=== PATIENT | male | born 1960 | race Caucasian/White ===

== ENCOUNTER 2020-12-06 11:39 | Observation (INO) | payer BC ==
--- OUTSIDE RECORDS SUMMARY | 2020-12-06 11:41 | XMS REPORT | Continuity of Care Document ---
:1960 Author Organization [facility] t Address [address] [place] [address] Dr. Lafleur [address] [place] [id number] Care Team Providers Name Role Phone Unavailable Unavailable Unavailable Problems This patient has no known problems. Allergies, Adverse Reactions, Alerts This patient has no known allergies or adverse reactions. Medications This patient has no known medications. Procedures This patient has no known procedures. Results This patient has no known results.
--- NOTE | 2020-12-06 15:19 | RAD REPORT ---
EXAM DESCRIPTION: US - Abdomen Exam Limited - 12/06/2020 2:33 pm CLINICAL HISTORY: ABD PAIN COMPARISON: Abdomen Exam Complete dated 04/07/2019 FINDINGS: The gallbladder demonstrates multiple small gallstones. The gallbladder wall is thickened to 7 mm. The common bile duct is normal measuring 4 mm. The liver demonstrates no findings of intrahepatic biliary dilatation. IMPRESSION: Cholelithiasis with evidence of mild gallbladder wall thickening. Acute cholecystitis i s a possibility.
--- NOTE | 2020-12-06 16:19 | RAD REPORT ---
EXAM DESCRIPTION: RAD - Chest Single View - 12/06/2020 4:12 pm CLINICAL HISTORY: SWELLING Chest pain. COMPARISON: No comparisons FINDINGS: Portable technique limits examination quality. The lungs are grossly clear. The heart is significantly enlarged. No displaced fractures. IMPRESSION: Prominent cardiomegaly.
[2020-12-06 16:26] LABS: Absolute Lymphocytes (CBC) 1.3 K/uL (0.7-4.9); Basophils % 1.4 % (0-1.3); Lymphocytes % 21.4 % (15.3-44.8); MPV 8.6 fL (7.6-11.3); RBC Red Blood Cell Count 4.94 M/uL (4.33-5.43)
[2020-12-06 16:28] LABS: Protime INR 1.51
[2020-12-06 16:46] LABS: Albumin 3.4 g/dL (3.4-5.0); Bilirubin Direct 0.9 mg/dL (0-0.2); Bilirubin Total 2.1 mg/dL (0.2-1.0); Potassium 3.1 mmol/L (3.5-5.1); Protein, Total 7.3 g/dL (6.4-8.2)
--- NOTE | 2020-12-06 17:39 | ER ---
Nurse's Notes [facility] Name: Rony Guzman Age: 60 yrs Sex: Male : 1960 Arrival Date: 12/06/2020 Time: 11:42 Bed 2 Private MD: Diagnosis: Cardiogenic shock Presentation: 12/06 12:27 Chief complaint: Patient states: Abd pain with N/V (worse at night) for 1-2 weeks. No ll1 fever. Coronavirus screen: Client denies travel out of the [place] in the last 14 days. At this time, the client does not indicate any symptoms associated with coronavirus-19. Ebola Screen: Patient denies travel to an Ebola-affected area in the 21 days before illness onset. Initial Sepsis Screen: Does the patient meet any 2 criteria? No. Patient's initial sepsis screen is negative. Does the patient have a suspected source of infection? Yes: Acute abdominal pain. Risk Assessment: Do you want to hurt yourself or someone else? Patient reports no desire to harm self or others. Onset of symptoms was November 27, 2020. 12:27 Method Of Arrival: Ambulatory ll1 12:27 Acuity: AIMEE 3 ll1 Triage Assessment: 15:30 General: Appears distressed, uncomfortable, Behavior is cooperative, appropriate for bp age, anxious. Pain: Complains of pain in abdomen. EENT: No deficits noted. Neuro: No deficits noted. Cardiovascular: No deficits noted. Respiratory: No deficits noted. GI: Reports upper abdominal pain, nausea. : No signs and/or symptoms were reported regarding the genitourinary system. Derm: No deficits noted. Musculoskeletal: No deficits noted. Historical: - Allergies: 12/07 00:21 No Known Allergies; jb4 - Home Meds: 12/06 16:23 omeprazole 40 mg Oral cpDR 1 cap once daily [Active]; simvastatin 40 mg Oral tab 1 tab bp once daily [Active]; alprazolam 2 mg Oral TbDL 1 tab twice a day [Active]; Senokot 8.6 mg Oral tab 2 tabs once daily [Active]; furosemide 40 mg Oral tab 2 tabs once daily [Active]; sotalol 120 mg Oral tab 1 tab 2 times per day [Active]; - PMHx: 12:30 CHF; Cirrhosis; Diabetes - IDDM; Hypertension; ll1 - PSHx: 12:30 colonscopy; heart cath; ll1 - Immunization history:: Flu vaccine is not up to date. - Social history:: Smoking status: Patient denies any tobacco usage or history of. - : The history from the nurse's notes was reviewed. Screenin:31 Abuse screen: Denies threats or abuse. Denies injuries from another. Nutritional bp screening: No deficits noted. Tuberculosis screening: No symptoms or risk factors identified. Fall Risk None identified. Assessment: 15:31 General: SEE TRIAGE NOTE. bp 16:24 Reassessment: Patient appears in no apparent distress at this time. No changes from bp previously documented assessment. Patient and/or family updated on plan of care and expected duration. Pain level reassessed. Patient is alert, oriented x 3, equal unlabored respirations, skin warm/dry/pink. U/S PENDING. 16:32 Reassessment: : CHRISTY GUZMAN [phone]. bp 17:30 Reassessment: Patient appears in no apparent distress at this time. No changes from bp previously documented assessment. Patient and/or family updated on plan of care and expected duration. Pain level reassessed. Patient is alert, oriented x 3, equal unlabored respirations, skin warm/dry/pink. ADMIT INITIATED. 18:30 Reassessment: Patient appears in no apparent distress at this time. No changes from bp previously documented assessment. Patient and/or family updated on plan of care and expected duration. Pain level reassessed. Patient is alert, oriented x 3, equal unlabored respirations, skin warm/dry/pink. PER SURGERY, PT NPO. SURG C/S DUE IN THE AM. 19:00 Reassessment: Patient appears in no apparent distress at this time. Patient and/or jb4 family updated on plan of care and expected duration. Pain level reassessed. Patient is alert, oriented x 3, equal unlabored respirations, skin warm/dry/pink. 20:00 Reassessment: Patient appears in no apparent distress at this time. Patient and/or jb4 family updated on plan of care and expected duration. Pain level reassessed. Patient is alert, oriented x 3, equal unlabored respirations, skin warm/dry/pink. 21:15 Reassessment: PT attempted to ambulate to the restroom. Upon returning to his room he jb4 stopped at the nurses station and appeared dazed and was looking around. Pt was informed that he needed to return to his room. Primary nurses followed pt back to his room. The pt began to stumble, when asked what was wrong, he stated " nothing I feel fine" and fell into the nurse. Help was called for and pt was assisted to his room. Upon entering the room the pt fell completely unresponsive and was put back in the bed. The patient is noted to be cool, clammy, and cyanotic. Medical staff alerted the hospitalist and ER provider. Pt became responsive and returned to A\\T\\O 4 upon the arrival of the Hospitalist and ER provider. Pt denies dizziness or feeling light headed and continues to state " I feel fine guys.". 21:30 Reassessment: Hospitalist performed an ultrasound of the pt's heart. Unable to obtain jb4 manual or automatic B/p. Provider notified at the bedside, provider unable to obtain manual B/p. Pt remains Cyanotic, cool, and clammy, and A\\T\\O x4. 21:45 Reassessment: Provider initiated central line to the right femoral, pt placed on jb4 Dobutamine drip, blood pressure reading 99/68 after drip was started. 22:45 Reassessment: Patient appears in no apparent distress at this time. Patient and/or jb4 family updated on plan of care and expected duration. Pain level reassessed. Patient is alert, oriented x 3, equal unlabored respirations, skin warm/dry/pink. Pt remains cyanotic on the ears, over color improved, pt is no longer cool, and clammy. Pt remains A\\T\\Ox4, reports feeling much better. 23:56 Reassessment: Patient and/or family updated on plan of care and expected duration. Pain ea level reassessed. Patient is alert, oriented x 3, equal unlabored respirations, skin warm/dry/pink. Report given to flight team, pt left ED via stretcher tolerating well. Vital Signs: 12:27 BP 114 / 86; Pulse 89; Resp 17; Temp 98.8; Pulse Ox 100% ; Weight 81.65 kg; Height 5 ll1 ft. 10 in. (177.80 cm); Pain 2/10; 15:30 BP 111 / 91; Pulse 90; Resp 17; Pulse Ox 100% ; bp 16:24 BP 104 / 89; Pulse 91; Resp 17; Pulse Ox 97% ; bp 18:30 BP 101 / 68; Pulse 62; Resp 17; Pulse Ox 100% ; bp 19:51 BP 96 / 75; Pulse 65; Resp 18; Pulse Ox 95% on R/A; jb4 20:30 BP 91 / 66; Pulse 71; Resp 17; Pulse Ox 96% on R/A; jb4 21:11 BP 99 / 68; Pulse 71; Resp 17; Pulse Ox 96% on R/A; jb4 21:55 BP 110 / 82; Pulse 75; Resp 19; Pulse Ox 100% on Non-rebreather mask; jb4 22:15 BP 102 / 70; Pulse 76; Resp 16; Pulse Ox 100% on Non-rebreather mask; jb4 22:30 BP 126 / 80; Pulse 75; Resp 18; Pulse Ox 100% on Non-rebreather mask; jb4 22:45 BP 130 / 78; Pulse 75; Resp 20; Temp 97.4(C); Pulse Ox 100% on Non-rebreather mask; jb4 23:08 BP 120 / 53; Pulse 72; Resp 15; Pulse Ox 100% on R/A; mw2 23:25 BP 92 / 62; Pulse 74; Resp 16; Pulse Ox 100% on Non-rebreather mask; jb4 23:56 BP 120 / 76; Pulse 72; Resp 20; Temp 98.6; Pulse Ox 100% ; ea 12:27 Body Mass Index 25.83 (81.65 kg, 177.80 cm) ll1 ED Course: 11:42 Patient arrived in ED. ds1 12:29 Triage completed. ll1 12:31 Arm band placed on. ll1 14:33 Ultrasound completed. Patient tolerated well. Patient taken to lobby, via wheelchair, is Patient moved back from ultrasound. 14:41 Abdomen Exam Limited In Process Unspecified. EDMS 15:30 Servando Eden, JOSE MANUEL is Primary Nurse. bp 15:30 Tanya Bennett FNP-C is PHCP. kb 15:30 Silver Beltran MD is Attending Physician. kb 15:31 Patient has correct armband on for positive identification. Bed in low position. Call bp light in reach. Side rails up X2. 16:05 Inserted saline lock: 22 gauge in right wrist, using aseptic technique. Blood collected.bp 16:12 Chest Single View XRAY In Process Unspecified. EDMS 17:38 Fausto Quispe MD is Hospitalizing Provider. kb 19:15 Primary Nurse role handed off by Servando Eden, RN mw2 19:31 Jorge Luis Augustine, JSOE MANUEL is Primary Nurse. jb4 21:52 initiated a transfer with Dinorah Mandel from [facility]. mw2 21:55 initiated a transfer with Raquel Antunez from [facility]. mw2 22:08 Dinorah from [facility] called to deny due to capacity. mw2 22:23 doc to doc with the gang miner from [facility]. mw2 22:35 Assisted provider with central line placement. Set up central line tray. Triple lumen ea line placed in right femoral. Line placed by Anton NESS Placement verified by blood return, Patient tolerated well. 22:40 Vásquez cath inserted, using sterile technique, 18 Fr., by ED staff, balloon inflated, to ea gravity drainage. 22:54 administrative approval given by Raquel Antunez/ patient has been accepted to [facility] 7 [facility] bed 14/ Dr. Esquivel has accepted the patient in transfer/ report to be called to [phone]. 23:54 Patient transferred, IV remains in place. ea Administered Medications: 18:45 Drug: D5-1/2 NS 1000 ml Route: IV; Rate: 50 ml/hr; Site: right hand; bp 20:00 Follow up: IV Status: Completed infusion ea 18:45 Drug: Potassium Effervescent Tablet 50 mEq Route: PO; bp 20:00 Follow up: Response: No adverse reaction ea 18:45 Drug: D50W 25 ml Route: IVP; Site: right wrist; bp 20:00 Follow up: Response: No adverse reaction ea 21:50 Drug: DOBUTamine (250 mg/250mL premix) 10 mcg/kg/min Route: IV; Rate: calculated rate; [facility] [place] Site: right femoral; 12/07 00:23 Follow up: Response: Blood pressure is elevated; IV Status: Infusion continued upon jb4 transfer 12/06 22:35 Drug: Heparin (DVT/PE Drip) 18 units/kg/hr - (HEParin 04293 units, D5W 500 ml) jb4 {Co-Signature: yared (Marlene Boswell RN).} Route: IV; Rate: calculated rate; Site: right femoral; 12/07 00:23 Follow up: Response: No adverse reaction; IV Status: Infusion continued upon transfer jb4 12/06 22:35 Drug: HEParin 5000 units {Co-Signature: yared (Marlene Boswell RN).} Route: IV; Rate: bolus; jb4 Site: right femoral; 23:00 Follow up: Response: No adverse reaction jb4 22:45 Drug: Pepcid 20 mg Route: IVP; Site: right wrist; jb4 23:15 Follow up: Response: No adverse reaction jb4 23:57 Follow up: Response: No adverse reaction ea 22:45 Drug: Solu-CORTEF 100 mg Route: IVP; Site: right wrist; jb4 23:15 Follow up: Response: No adverse reaction jb4 23:58 Follow up: Response: No adverse reaction ea 22:46 Drug: Zosyn 3.375 grams Route: IVPB; Infused Over: 60 mins; Site: right wrist; jb4 23:46 Follow up: Response: No adverse reaction; IV Status: Completed infusion; IV Intake: jb4 100ml 23:26 Drug: Epinephrine Drip - (EPINEPHrine (PF) 4 mg, Sodium Chloride 0.9% 250 ml) Route: jb4 IV; Rate: 5 mcg/min; Site: right femoral; 23:57 Follow up: IV Status: Infusion continued upon transfer ea 12/07 00:22 Not Given (Physician Discretion): Fabricio-Synephrine 100 mcg/min IV at calculated rate jb4 continuous; (Standard dilution is 50 mg in 250 mL D5W, final concentration 200 mcg/mL) Intake: 12/06 23:46 IV: 100ml; Total: 100ml. jb4 Outcome: 17:38 Decision to Hospitalize by Provider. kb 23:04 ER care complete, transfer ordered by . kb 23:54 Transferred by helicopter to [facility], Transfer form completed. ea 23:54 Condition: stable 23:54 Instructed on the need for transfer, Demonstrated understanding of instructions. 12/07 00:22 Patient left the ED. ea Signatures: Dispatcher [employer] EDTanya Reyez, PLANT TAXONOMIST-C PLANT TAXONOMIST-Ckb Elli Hill ds1 Jorge Luis Augustine RN RN jb4 Marlene Boswell RN RN ea Peltier, Brian RN RN bp Rosa Blank 2 Nusrat Schofield Lynsay, RN RN ll1 Marlene Boswell RN, ea Corrections: (The following items were deleted from the chart) 12/06 21:58 21:50 The history from the nurse's notes was reviewed. kb kb
--- NOTE | 2020-12-06 17:39 | EDPHYS ---
Physician Documentation [facility] Name: Rony Eckert Age: 60 yrs Sex: Male : 1960 Arrival Date: 12/06/2020 Time: 11:42 Bed 2 Private MD: ED Physician Silver Beltran HPI: 12/06 15:30 This 60 yrs old Male presents to ER via Ambulatory with complaints of kb Gallstones Pain. 15:30 The patient presents to the emergency department with nausea, vomiting. Onset: The kb symptoms/episode began/occurred 2 week(s) ago. Possible causes: unknown. The symptoms are aggravated by nothing. The symptoms are alleviated by nothing. Associated signs and symptoms: Pertinent positives: nausea, vomiting, Pertinent negatives: abdominal pain, anorexia, belching, constipation, diarrhea, dysuria, fever, flatulence, GI bleeding, hematuria. Severity of symptoms: At their worst the symptoms were moderate in the emergency department the symptoms have improved. The patient has not experienced similar symptoms in the past. The patient has not recently seen a physician. Pt reports nausea and vomiting for 2 weeks, worse at night. States he was diagnosed with gallstones last year and believes that is the problem. Denies pain. States he also has swelling to bilateral lower extremities, but he knows that is from his CHF. . Historical: - Allergies: 12/07 00:21 No Known Allergies; jb4 - Home Meds: 12/06 16:23 omeprazole 40 mg Oral cpDR 1 cap once daily [Active]; simvastatin 40 mg Oral tab 1 tab bp once daily [Active]; alprazolam 2 mg Oral TbDL 1 tab twice a day [Active]; Senokot 8.6 mg Oral tab 2 tabs once daily [Active]; furosemide 40 mg Oral tab 2 tabs once daily [Active]; sotalol 120 mg Oral tab 1 tab 2 times per day [Active]; - PMHx: 12:30 CHF; Cirrhosis; Diabetes - IDDM; Hypertension; ll1 - PSHx: 12:30 colonscopy; heart cath; ll1 - Immunization history:: Flu vaccine is not up to date. - Social history:: Smoking status: Patient denies any tobacco usage or history of. - : The history from the nurse's notes was reviewed. ROS: 15:30 Constitutional: Negative for fever, chills, and weight loss, Cardiovascular: Negative kb for chest pain, palpitations, and edema, Respiratory: Negative for shortness of breath, cough, wheezing, and pleuritic chest pain, Back: Negative for injury and pain, MS/Extremity: Negative for injury and deformity, Skin: Negative for injury, rash, and discoloration, Neuro: Negative for headache, weakness, numbness, tingling, and seizure. 15:30 Abdomen/GI: Positive for nausea and vomiting, Negative for abdominal pain. Exam: 15:30 Constitutional: This is a well developed, well nourished patient who is awake, alert, kb and in no acute distress. Head/Face: Normocephalic, atraumatic. Chest/axilla: Normal chest wall appearance and motion. Nontender with no deformity. No lesions are appreciated. Respiratory: Lungs have equal breath sounds bilaterally, clear to auscultation and percussion. No rales, rhonchi or wheezes noted. No increased work of breathing, no retractions or nasal flaring. Abdomen/GI: Soft, non-tender, with normal bowel sounds. No distension or tympany. No guarding or rebound. No evidence of tenderness throughout. Skin: Warm, dry with normal turgor. Normal color with no rashes, no lesions, and no evidence of cellulitis. MS/ Extremity: Pulses equal, no cyanosis. Neurovascular intact. Full, normal range of motion. Neuro: Awake and alert, GCS 15, oriented to person, place, time, and situation. Cranial nerves II-XII grossly intact. Motor strength 5/5 in all extremities. Sensory grossly intact. Cerebellar exam normal. Normal gait. 15:30 Cardiovascular: Rate: normal, Rhythm: irregularly irregular, Pulses: no pulse deficits are appreciated, Heart sounds: normal, Edema: 2+ edema to level of left ankle, left foot, right ankle and right foot. Vital Signs: 12:27 BP 114 / 86; Pulse 89; Resp 17; Temp 98.8; Pulse Ox 100% ; Weight 81.65 kg; Height 5 ll1 ft. 10 in. (177.80 cm); Pain 2/10; 15:30 BP 111 / 91; Pulse 90; Resp 17; Pulse Ox 100% ; bp 16:24 BP 104 / 89; Pulse 91; Resp 17; Pulse Ox 97% ; bp 18:30 BP 101 / 68; Pulse 62; Resp 17; Pulse Ox 100% ; bp 19:51 BP 96 / 75; Pulse 65; Resp 18; Pulse Ox 95% on R/A; jb4 20:30 BP 91 / 66; Pulse 71; Resp 17; Pulse Ox 96% on R/A; jb4 21:11 BP 99 / 68; Pulse 71; Resp 17; Pulse Ox 96% on R/A; jb4 21:55 BP 110 / 82; Pulse 75; Resp 19; Pulse Ox 100% on Non-rebreather mask; jb4 22:15 BP 102 / 70; Pulse 76; Resp 16; Pulse Ox 100% on Non-rebreather mask; jb4 22:30 BP 126 / 80; Pulse 75; Resp 18; Pulse Ox 100% on Non-rebreather mask; jb4 22:45 BP 130 / 78; Pulse 75; Resp 20; Temp 97.4(C); Pulse Ox 100% on Non-rebreather mask; jb4 23:08 BP 120 / 53; Pulse 72; Resp 15; Pulse Ox 100% on R/A; mw2 23:25 BP 92 / 62; Pulse 74; Resp 16; Pulse Ox 100% on Non-rebreather mask; jb4 23:56 BP 120 / 76; Pulse 72; Resp 20; Temp 98.6; Pulse Ox 100% ; ea 12:27 Body Mass Index 25.83 (81.65 kg, 177.80 cm) ll1 Procedures: 22:55 Central Line: the site was prepped with Betadine, in sterile fashion, a triple lumen jr8 catheter was inserted, in the right femoral vein, in 1 attempts. placement was verified, by blood return, the site was dressed with 4X4s, Tegaderm, foam tape, using sterile technique, the patient tolerated the procedure, well. MDM: 15:30 Patient medically screened. kb 17:37 Data reviewed: vital signs, nurses notes. Data interpreted: Pulse oximetry: on room air kb is 97 %. Interpretation: normal. Counseling: I had a detailed discussion with the patient and/or guardian regarding: the historical points, exam findings, and any diagnostic results supporting the discharge/admit diagnosis, lab results, radiology results, the need for further work-up and treatment in the hospital. Physician consultation: Eitan Rosales MD was contacted at 17:37, regarding consult, patient's condition, and will see patient in inpatient room, tomorrow. 17:38 Physician consultation: Fausto Quispe MD was contacted at 17:38, regarding admission, to the medical/surgical unit. patient's condition, and will see patient in inpatient room. 22:05 Transition of care:. ED course: Pt was walking back from restroom and had a syncopal kb episode. Pt became cyanotic. THI Saha at bedside. . 22:55 ED course: I took over care from Tanya ZALDIVAR for critical care evaluation after patient jr8 had syncopal episode coming back from the bathroom. Patient had both peripheral and central cyanosis present at bedside. Patient immediately put on defib monitor and oxygen. Central line placed and dobutamine and epinephrine started. Patient had no palpable radial pulses. Femoral pulses present. After being on drips BP now 101/68 with central cyanosis resolving. [facility] contacted and Drs. Wang cardiology and Alvin Department Of Sociology Chair accepted patient for cardiogenic shock. Patient also started on heparin drip as he has on/off atrial fib history and still testing positive for covid. Concern for PE vs myocarditis vs CT with worsening of CHF. 12/06 15:31 Order name: Basic Metabolic Panel 12/06 15:31 Order name: CBC with Diff 12/06 15:31 Order name: Hepatic Function 12/06 15:31 Order name: Lipase 12/06 15:32 Order name: Basic Metabolic Panel; Complete Time: 16:48 EDAR 12/06 15:32 Order name: CBC with Automated Diff; Complete Time: 16:42 EDAR 12/06 15:32 Order name: Liver (Hepatic) Function; Complete Time: 16:48 EDAR 12/06 15:32 Order name: Lipase; Complete Time: 16:48 EDAR 12/06 15:48 Order name: BNP; Complete Time: 16:42 12/06 15:48 Order name: Protime (+inr); Complete Time: 16:42 12/06 15:48 Order name: Ptt, Activated; Complete Time: 16:42 12/06 19:49 Order name: COVID-19 : Document "Date of Symptom Onset" if Symptomatic. dm5 12/06 19:50 Order name: COVID-19 : Document "Date of Symptom Onset" if Symptomatic. jb4 12/06 20:47 Order name: CORONAVIRUS EDMS 12/06 21:29 Order name: Basic Metabolic Panel kb 12/06 21:29 Order name: CBC with Diff kb 12/06 21:29 Order name: LFT's kb 12/06 21:29 Order name: Magnesium kb 12/06 21:29 Order name: NT PRO-BNP kb 12/06 21:29 Order name: PT-INR kb 12/06 21:29 Order name: Troponin (emerg Dept Use Only) kb 12/06 21:29 Order name: CPK kb 12/06 21:29 Order name: Ckmb kb 12/06 21:41 Order name: SARS-COV-2 RT PCR; Complete Time: 21:48 EDMS 12/06 22:11 Order name: CBC with Automated Diff; Complete Time: 22:13 EDMS 12/06 22:11 Order name: Protime (+INR); Complete Time: 22:13 EDMS 12/06 22:28 Order name: Basic Metabolic Panel; Complete Time: 22:33 EDMS 12/06 22:28 Order name: Liver (Hepatic) Function; Complete Time: 22:33 EDMS 12/06 22:29 Order name: Creatine Phosphokinase; Complete Time: 22:33 EDMS 12/06 22:29 Order name: CKMB Creatine Kinase MB; Complete Time: 22:33 EDMS 12/06 14:03 Order name: US Abdomen Limited kb 12/06 14:03 Order name: Abdomen Exam Limited; Complete Time: 15:30 EDMS 12/06 15:31 Order name: IV Saline Lock; Complete Time: 16:20 kb 12/06 15:31 Order name: Labs collected and sent; Complete Time: 16:20 kb 12/06 15:48 Order name: Chest Single View XRAY; Complete Time: 16:24 kb 12/06 21:29 Order name: EKG; Complete Time: 21:30 kb 12/06 21:29 Order name: Cardiac monitoring; Complete Time: 22:15 kb 12/06 21:29 Order name: EKG - Nurse/Tech; Complete Time: 22:15 kb 12/06 21:29 Order name: IV Saline Lock; Complete Time: 22:15 kb 12/06 21:29 Order name: Labs collected and sent; Complete Time: 22:21 kb 12/06 21:29 Order name: O2 Per Protocol; Complete Time: 22:21 kb 12/06 21:29 Order name: O2 Sat Monitoring; Complete Time: 22:21 kb 12/06 21:52 Order name: Vásquez; Complete Time: 22:14 wilfredo 12/06 22:29 Order name: Troponin (Emerg Dept Use Only); Complete Time: 22:33 EDMS 12/06 22:29 Order name: NT PRO-BNP; Complete Time: 22:33 EDMS 12/06 22:29 Order name: Magnesium; Complete Time: 22:33 EDMS Administered Medications: 18:45 Drug: D5-1/2 NS 1000 ml Route: IV; Rate: 50 ml/hr; Site: right hand; bp 20:00 Follow up: IV Status: Completed infusion ea 18:45 Drug: Potassium Effervescent Tablet 50 mEq Route: PO; bp 20:00 Follow up: Response: No adverse reaction ea 18:45 Drug: D50W 25 ml Route: IVP; Site: right wrist; bp 20:00 Follow up: Response: No adverse reaction ea 21:50 Drug: DOBUTamine (250 mg/250mL premix) 10 mcg/kg/min Route: IV; Rate: calculated rate; [facility] Site: right femoral; 12/07 00:23 Follow up: Response: Blood pressure is elevated; IV Status: Infusion continued upon [facility] transfer 12/06 22:35 Drug: Heparin (DVT/PE Drip) 18 units/kg/hr - (HEParin 97530 units, D5W 500 ml) [facility] {Co-Signature: yared (Marlene Boswell RN).} Route: IV; Rate: calculated rate; Site: right femoral; 12/07 00:23 Follow up: Response: No adverse reaction; IV Status: Infusion continued upon transfer [facility] 12/06 22:35 Drug: HEParin 5000 units {Co-Signature: yared (Marlene Boswell RN).} Route: IV; Rate: bolus; 4 Site: right femoral; 23:00 Follow up: Response: No adverse reaction [facility] 22:45 Drug: Pepcid 20 mg Route: IVP; Site: right wrist; jb4 23:15 Follow up: Response: No adverse reaction [facility] 23:57 Follow up: Response: No adverse reaction ea 22:45 Drug: Solu-CORTEF 100 mg Route: IVP; Site: right wrist; jb4 23:15 Follow up: Response: No adverse reaction jb4 23:58 Follow up: Response: No adverse reaction ea 22:46 Drug: Zosyn 3.375 grams Route: IVPB; Infused Over: 60 mins; Site: right wrist; jb4 23:46 Follow up: Response: No adverse reaction; IV Status: Completed infusion; IV Intake: jb4 100ml 23:26 Drug: Epinephrine Drip - (EPINEPHrine (PF) 4 mg, Sodium Chloride 0.9% 250 ml) Route: jb4 IV; Rate: 5 mcg/min; Site: right femoral; 23:57 Follow up: IV Status: Infusion continued upon transfer ea 12/07 00:22 Not Given (Physician Discretion): Fabricio-Synephrine 100 mcg/min IV at calculated rate jb4 continuous; (Standard dilution is 50 mg in 250 mL D5W, final concentration 200 mcg/mL) Disposition: 12/06/20 23:04 Transfer ordered to [facility]. Diagnosis is Cardiogenic shock. - Reason for transfer: Higher level of care. - Accepting physician is Alvin. - Condition is Critical. - Problem is new. - Symptoms are unchanged. Critical care time excluding procedures: 12/06 23:03 Critical care time: Bedside Care: 15 minutes, Consultation: 10 minutes, Family kb Intervention: 10 minutes. Total time: 35 minutes Addendum: 12/08/2020 20:04 Co-signature as Attending Physician, Silver Beltran MD I agree with the assessment and k dr plan of care. Signatures: Dispatcher [employer] EDAR Tanya Bennett, TRIM MACHINE OPERATOR-C TRIM MACHINE OPERATOR-CkLily Silva, RN Sanchez Cheatham MD MD cha Rittger, Kevin, MD MD kdr Roszak, Josh, PA PA jr8 Jorge Luis Augustine, RN RN jbMarlene Morales RN RN ea Peltier, Brian, RN RN bp Lewis, Lynsay, RN RN ll1 Marlene Boswell RN, ea Corrections: (The following items were deleted from the chart) 12/06 20:19 17:38 Hospitalization Ordered by Fausto Quispe MD for Observation. Preliminary diagnosis is dw Acute cholecystitis; Cholelithiasis. Bed requested for Telemetry/MedSurg (observation). Status is Observation. Condition is Stable. Problem is new. Symptoms are unchanged. kb 21:56 21:50 Constitutional: Negative for fever, chills, and weight loss, Cardiovascular: kb Negative for chest pain, palpitations, and edema, Respiratory: Negative for shortness of breath, cough, wheezing, and pleuritic chest pain, Back: Negative for injury and pain, MS/Extremity: Negative for injury and deformity, Skin: Negative for injury, rash, and discoloration, Neuro: Negative for headache, weakness, numbness, tingling, and seizure, kb 21:56 21:50 Abdomen/GI: Positive for nausea and vomiting, Negative for abdominal pain, kb kb 21:56 21:50 Constitutional: This is a well developed, well nourished patient who is awake, kb alert, and in no acute distress. Head/Face: Normocephalic, atraumatic. Chest/axilla: Normal chest wall appearance and motion. Nontender with no deformity. No lesions are appreciated. Cardiovascular: Regular rate and rhythm with a normal S1 and S2. No gallops, murmurs, or rubs. Normal PMI, no JVD. No pulse deficits. Respiratory: Lungs have equal breath sounds bilaterally, clear to auscultation and percussion. No rales, rhonchi or wheezes noted. No increased work of breathing, no retractions or nasal flaring. Abdomen/GI: Soft, non-tender, with normal bowel sounds. No distension or tympany. No guarding or rebound. No evidence of tenderness throughout. Skin: Warm, dry with normal turgor. Normal color with no rashes, no lesions, and no evidence of cellulitis. MS/ Extremity: Pulses equal, no cyanosis. Neurovascular intact. Full, normal range of motion. Neuro: Awake and alert, GCS 15, oriented to person, place, time, and situation. Cranial nerves II-XII grossly intact. Motor strength 5/5 in all extremities. Sensory grossly intact. Cerebellar exam normal. Normal gait. kb 21:58 21:50 The history from the nurse's notes was reviewed. kb kb 21:58 21:50 Constitutional: This is a well developed, well nourished patient who is awake, kb alert, and in no acute distress. Head/Face: Normocephalic, atraumatic. Chest/axilla: Normal chest wall appearance and motion. Nontender with no deformity. No lesions are appreciated. Respiratory: Lungs have equal breath sounds bilaterally, clear to auscultation and percussion. No rales, rhonchi or wheezes noted. No increased work of breathing, no retractions or nasal flaring. Abdomen/GI: Soft, non-tender, with normal bowel sounds. No distension or tympany. No guarding or rebound. No evidence of tenderness throughout. Skin: Warm, dry with normal turgor. Normal color with no rashes, no lesions, and no evidence of cellulitis. MS/ Extremity: Pulses equal, no cyanosis. Neurovascular intact. Full, normal range of motion. Neuro: Awake and alert, GCS 15, oriented to person, place, time, and situation. Cranial nerves II-XII grossly intact. Motor strength 5/5 in all extremities. Sensory grossly intact. Cerebellar exam normal. Normal gait. kb 21:58 21:55 Cardiovascular: Rate: normal, Rhythm: irregularly irregular, Pulses: no pulse kb deficits are appreciated, Heart sounds: normal, Edema: 2+ edema to level of left ankle, left foot, right ankle and right foot, kb 21:58 21:51 The patient has not recently seen a physician, kb kb 21:58 21:51 The patient has not experienced similar symptoms in the past, kb kb 21:58 21:51 This 60 yrs old Male presents to ER via Ambulatory with complaints of kb Gallstones Pain. kb 21:58 21:54 Onset: The symptoms/episode began/occurred 2 week(s) ago, kb kb 21:58 21:54 Possible causes: unknown, kb kb 21:58 21:54 The patient presents to the emergency department with nausea, vomiting, kb kb 21:58 21:54 The symptoms are aggravated by nothing. The symptoms are alleviated by nothing. kbkb 21:58 21:54 Associated signs and symptoms: Pertinent positives: nausea, vomiting, Pertinent kb negatives: abdominal pain, anorexia, belching, constipation, diarrhea, dysuria, fever, flatulence, GI bleeding, hematuria, kb 21:58 21:54 Severity of symptoms: At their worst the symptoms were moderate in the emergency kb department the symptoms have improved kb 21:58 21:54 Pt reports nausea and vomiting for 2 weeks, worse at night. States he was kb diagnosed with gallstones last year and believes that is the problem. Denies pain. States he also has swelling to bilateral lower extremities, but he knows that is from his CHF. . kb 22:00 20:19 12/06/2020 17:38 Hospitalization Ordered by A Jose Enrique CARD for Observation. dw Preliminary diagnosis is Acute cholecystitis; Cholelithiasis. Bed requested for [facility] ER HOLD. Status is Observation. Condition is Stable. Problem is new. Symptoms are unchanged. dw 22:04 22:00 12/06/2020 17:38 Hospitalization Ordered by A Jose Enrique CARD for Observation. lauren Preliminary diagnosis is Acute cholecystitis; Cholelithiasis. Bed requested for Telemetry/MedSurg (Inpatient). Status is Observation. Condition is Stable. Problem is new. Symptoms are unchanged. dw 12/07 00:22 12/06 23:04 12/06/2020 23:04 Transfer ordered to [facility]. ea Diagnosis is Cardiogenic shock. Reason for transfer: Higher level of care. Accepting physician is Alvin. Condition is Critical. Problem is new. Symptoms are unchanged. kb
[2020-12-06] MEDS ORDERED: D50W 50 ML IV ONE (18:56)
[2020-12-06] MEDS ORDERED: POTASSIUM 25 MEQ EFFERV TAB ONE (18:56)
[2020-12-06] MEDS ORDERED: D5 0.45 NS 1,000 ML IV ONE (18:56)
[2020-12-06] MEDS ORDERED: DOBUTAMINE 250 MG/250 ML BAG IV ONE (21:54)
[2020-12-06] MEDS ORDERED: Phenylephrine HCl 10 MG/ML 1 ML VIAL ONE ×2 (22:03→22:05)
[2020-12-06] MEDS ORDERED: D5W 250 ML IV ONE (22:04)
[2020-12-06 22:09] LABS: Absolute Lymphocytes (CBC) 1.7 K/uL (0.7-4.9); Basophils % 1.3 % (0-1.3); Hematocrit 46.3 % (39.6-49.0); Lymphocytes % 24.8 % (15.3-44.8); MPV 7.9 fL (7.6-11.3); RBC Red Blood Cell Count 5.18 M/uL (4.33-5.43)
[2020-12-06 22:10] LABS: Protime INR 1.64
[2020-12-06 22:28] LABS: Albumin 3.2 g/dL (3.4-5.0); Bilirubin Total 2.3 mg/dL (0.2-1.0); CKMB Creatine Kinase MB 2.2 ng/mL (0.3-3.6); Magnesium 2.1 mg/dL (1.8-2.4); Potassium 4.1 mmol/L (3.5-5.1); Protein, Total 7.1 g/dL (6.4-8.2); Troponin (Emerg Dept Use Only) 0.07 ng/mL (0.0-0.045)
[2020-12-06] MEDS ORDERED: FAMOTIDINE 20 MG/2 ML VIAL IV ONE (22:41)
[2020-12-06] MEDS ORDERED: HYDROCORTISONE SUC 100 MG INJ ONE (22:41)
[2020-12-06] MEDS ORDERED: HEPARIN 5000 UNIT/ML 1 ML VIAL ONE (22:41)
[2020-12-06] MEDS ORDERED: HEPARIN/D5W 25,000 UNIT/500 ML BAG IV ONE (22:42)
[2020-12-06] MEDS ORDERED: PIPER/TAZO/NS 3.375gm 3.375 GM/100 ML BAG ONE (22:42)
[2020-12-06] MEDS ORDERED: EPINEPHRINE/PF 1 MG/ML AMP ONE ×2 (23:23→23:29)
[2020-12-06] MEDS ORDERED: NA CHLORIDE 0.9% 0 ML ONE (23:24)
[2020-12-07 01:49] VITALS: O2SAT 100
[2020-12-07 01:53] VITALS: BP 120/76; TEMP 98.6
--- NOTE | 2020-12-07 14:23 | EKG ---
Test Date: 2020-12-06 Test Time: 21:30:36 Powdered Metal Supervisor: YVROSE MEASUREMENT RESULTS: Intervals: Rate: 71 OH: 214 QRSD: 162 QT: 566 QTc: 615 [employer]: P: 78 OH: 214 QRS: -73 T: 87 INTERPRETIVE STATEMENTS: Sinus rhythm with 1st degree AV block with premature atrial complexes Left axis deviation Left bundle branch block Abnormal ECG No previous ECG available for comparison Electronically Signed On 12-07-20 14:22:45 UNDERWRITING ANALYST by Bob Hall
== END 2020-12-07 00:22 | disposition short-term general hospital (02) ==
LOC: ER 11:39 → ERHOLD 18:24
PROVIDERS: ADMIT Internal Medicine; ATTEND Internal Medicine
DX: U07.1 COVID-19 (principal); R57.0 Cardiogenic shock; I11.0 Hypertensive heart disease with heart failure; I50.9 Heart failure, unspecified; E11.9 Type 2 diabetes mellitus without complications; Z79.4 Long term (current) use of insulin; K74.60 Unspecified cirrhosis of liver; K80.20 Calculus of gallbladder without cholecystitis without obstruction; R94.31 Abnormal electrocardiogram [ECG] [EKG]
CPT/HCPCS: 93005; 85025 ×2; 80048 ×2; 36415; 83735; 82550; 85610 ×2; 80076 ×2; 85730; 84484; 82553; 83690; 83880 ×2; 71045; 76705; 51702; 99291; U0003; J0171 ×2; J1644 ×2; J2543; J7060; J7799; J1250; J1720; G0378; J2370; J7050